=== PATIENT | female | born 1975 | race Two or more races ===

== ENCOUNTER 2018-03-18 12:06 | Emergency (ER) | payer MEDICAID ==
[~2018-03-18] VITALS: Ht 160 cm; Wt 94.0 kg
[2018-03-18 12:13] VITALS: BP 119/63
[2018-03-18] MEDS ORDERED: ACETAMINOPHEN 325MG TABLET PO ONE (12:30)
== END 2018-03-18 13:00 | disposition home or self-care (01) ==
LOC: ER 12:24
DX: K08.89 Other specified disorders of teeth and supporting structures (principal)
CPT/HCPCS: 99283

== ENCOUNTER 2019-04-11 12:36 | Emergency (ER) | payer MEDICAID, OTHER ==
[~2019-04-11] VITALS: Ht 167.6 cm; Wt 98.0 kg
[2019-04-11] MEDS ORDERED: IBUPROFEN 600MG TABLET PO ONE (13:15)
[2019-04-11 14:00] VITALS: BP 121/65
== END 2019-04-11 14:03 | disposition home or self-care (01) ==
LOC: ER 12:36
DX: M25.461 Effusion, right knee (principal); M25.561 Pain in right knee; Z98.890 Other specified postprocedural states; W01.0XXA Fall on same level from slipping, tripping and stumbling without subsequent striking against object, initial encounter; Y93.89 Activity, other specified; Y92.89 Other specified places as the place of occurrence of the external cause; Y99.8 Other external cause status
CPT/HCPCS: 73562; 81025; 99283

== ENCOUNTER 2019-09-18 14:12 | Emergency (ER) | payer MEDICAID, OTHER ==
[~2019-09-18] VITALS: Ht 165.1 cm; Wt 73.0 kg
[2019-09-18] MEDS ORDERED: IBUPROFEN 600MG TABLET PO ONE (15:00)
[2019-09-18 18:00] VITALS: BP 130/78
== END 2019-09-18 18:15 | disposition home or self-care (01) ==
LOC: ER 14:12
DX: S09.8XXA Other specified injuries of head, initial encounter (principal); R51 Headache; Y08.89XA Assault by other specified means, initial encounter; Y93.89 Activity, other specified; Y92.9 Unspecified place or not applicable
CPT/HCPCS: 70486; 99284

== ENCOUNTER 2019-09-21 14:28 | Emergency (ER) | payer MEDICAID ==
[~2019-09-21] VITALS: Ht 170.2 cm; Wt 104.0 kg
[2019-09-21 14:47] VITALS: BP 138/68
[2019-09-21 16:29] LABS: CLARITY URINE CLEAR (CLEAR); COLOR URINE YELLOW (YELLOW); KETONES URINE NEGATIVE (NEGATIVE); LEUKOCYTE ESTERASE URINE 1+ (NEGATIVE); NITRITE URINE NEGATIVE (NEGATIVE); OCCULT BLOOD URINE NEGATIVE (NEGATIVE); PH URINE 6.5 (4.5-8.0); PROTEIN URINE NEGATIVE (NEGATIVE); SPECIFIC GRAVITY URINE 1.019 (1.005-1.030)
[2019-09-21 17:02] LABS: BASOPHILS % 0.8 % (0.0-2.0); EOSINOPHILS % 0.3 % (0.0-5.0); HEMATOCRIT. 40.7 % (36.0-48.0); HEMOGLOBIN. 13.7 g/dL (12.0-16.0); LYMPHOCYTES % 12.1 % (20.0-50.0); MEAN CORPUSCULAR HEMOGLOBIN 28.1 pg (28.0-32.0); MEAN CORPUSCULAR VOLUME 83.3 fL (81.0-99.0); MONOCYTES % 3.5 % (2.0-8.0); NEUTROPHILS % 83.3 % (40.0-76.0); PLATELET 345 x1000/uL (130-400); RED BLOOD CELL COUNT 4.88 mill/uL (4.2-5.4); RED CELL DISTRIBUTION WIDTH 13.7 % (11.6-14.6)
[2019-09-21 17:07] LABS: CHLORIDE 104 mEq/L (98-107)
== END 2019-09-21 18:30 | disposition home or self-care (01) ==
LOC: ER 14:28
DX: N39.0 Urinary tract infection, site not specified (principal)
CPT/HCPCS: 36415; 71046; 81003; 81025; 99284

== ENCOUNTER 2022-10-14 15:27 | Emergency (ER) | payer MEDICAID ==
[~2022-10-14] VITALS: Ht 167.6 cm; Wt 97.0 kg
[2022-10-14 17:18] LABS: BASOPHILS % 0.8 % (0.0-2.0); EOSINOPHILS % 1.4 % (0.0-5.0); HEMATOCRIT. 33.4 % (36.0-48.0); HEMOGLOBIN. 10.3 g/dL (12.0-16.0); LYMPHOCYTES % 23.5 % (20.0-50.0); MEAN CORPUSCULAR HEMOGLOBIN 20.9 pg (28.0-32.0); MEAN CORPUSCULAR VOLUME 68.2 fL (81.0-99.0); MEAN PLATELET VOLUME 7.9 fl (7.4-10.4); MONOCYTES % 7.1 % (2.0-8.0); NEUTROPHILS % 67.2 % (40.0-76.0); PLATELET 288 x1000/uL (130-400); RED CELL DISTRIBUTION WIDTH 16.6 % (11.6-14.6)
[2022-10-14 17:25] LABS: CHLORIDE 106 mEq/L (98-107)
[2022-10-14 17:42] LABS: HCG SCREEN NEGATIVE
[2022-10-14 17:45] LABS: PLATELET ESTIMATE NORMAL
[2022-10-14] MEDS ORDERED: ACETAMINOPHEN 325MG TABLET PO ONE (18:45)
[2022-10-15 03:31] VITALS: BP 130/72
== END 2022-10-15 03:33 | disposition short-term general hospital (02) ==
LOC: ER 15:27 → CANBEDREQ 10-16 08:36
DX: R20.0 Anesthesia of skin (principal)
CPT/HCPCS: 36415; 70450; 80053; 81025; 84703; 85025; 87426; 99285; C9803

== ENCOUNTER 2024-11-15 19:04 | Emergency (ER) | payer MEDICAID ==
[~2024-11-15] VITALS: Ht 167.6 cm; Wt 97.0 kg
[2024-11-15 19:23] VITALS: O2SAT 100
[2024-11-15 21:01] LABS: BASOPHILS % 0.8 % (0.0-2.0); EOSINOPHILS % 1.2 % (0.0-5.0); HEMATOCRIT. 31.2 % (36.0-48.0); HEMOGLOBIN. 9.4 g/dL (12.0-16.0); LYMPHOCYTES % 26.3 % (20.0-50.0); MEAN CORPUSCULAR HEMOGLOBIN 19.9 pg (28.0-32.0); MEAN CORPUSCULAR HGB CONC 30.1 g/dL (31.0-37.0); MEAN CORPUSCULAR VOLUME 66.1 fL (81.0-99.0); MEAN PLATELET VOLUME 7.9 fl (7.4-10.4); MONOCYTES % 5.2 % (2.0-8.0); NEUTROPHILS % 66.5 % (40.0-76.0); PLATELET 358 x1000/uL (130-400); RED BLOOD CELL COUNT 4.73 mill/uL (4.2-5.4); RED CELL DISTRIBUTION WIDTH 18.1 % (11.6-14.6); WHITE BLOOD COUNT 6.7 x1000/uL (4.5-11.0)
[2024-11-15 21:05] LABS: CHLORIDE 108 mEq/L (98-107); POTASSIUM 3.8 mEq/L (3.5-5.1); SODIUM 142 mEq/L (136-145)
[2024-11-15 21:06] LABS: CALCIUM 9.6 mg/dL (8.7-10.4); CARBON DIOXIDE 27 mEq/L (21-32)
[2024-11-15 21:11] LABS: CREATININE 0.9 mg/dL (0.6-1.0); GLUCOSE 158 mg/dL (70-105); UREA NITROGEN BLOOD 12 mg/dL (9-23)
[2024-11-15 21:31] LABS: DIFFERENTIAL COMMENT 1
[2024-11-15 23:24] VITALS: BP 135/89; PULSE 80; RESP 16; TEMP 36.83628; O2SAT 100
== END 2024-11-15 23:36 | disposition home or self-care (01) ==
LOC: ER 19:19
DX: N93.8 Other specified abnormal uterine and vaginal bleeding (principal); Z98.51 Tubal ligation status; Z98.890 Other specified postprocedural states
CPT/HCPCS: 36415; 80048; 81025; 85025; 86850; 86900; 99283

== ENCOUNTER 2025-08-19 13:52 | Emergency (ER) | payer MEDICAID, OTHER ==
[~2025-08-19] VITALS: Ht 167.6 cm; Wt 103.1 kg
[2025-08-19 14:13] VITALS: O2SAT 100
[2025-08-19] MEDS: KETOROLAC 30MG/ML VIAL IV ONE (17:18)
[2025-08-19] MEDS: METOCLOPRAMIDE HCL 10MG/2ML VIAL IV ONE (17:19)
[2025-08-19] MEDS: SODIUM CHLORIDE 0.9% 1,000 ML IV ONE (17:19)
[2025-08-19 18:23] VITALS: BP 126/56; PULSE 67; RESP 18; TEMP 37.1; O2SAT 99
[2025-08-19] MEDS ORDERED: TOPUD MT (18:37)
[2025-08-19] MEDS ORDERED: IBUP-2028 MT (18:37)
== END 2025-08-19 19:01 | disposition home or self-care (01) ==
LOC: ER 13:52
DX: R11.0 Nausea (principal); R51.9 Headache, unspecified; Z98.51 Tubal ligation status
CPT/HCPCS: 99285; 96374; 70450; 96361; 96375; 81025; J1885; J2765; J7030